=== PATIENT | female | born 2000 ===

== ENCOUNTER 2018-03-27 16:27 | Emergency (ER) | payer SELFPAY ==
[2018-03-27] MEDS ORDERED: Lidocaine 1% Inj (20ml) INFIL STA (17:02)
[2018-03-27] MEDS ORDERED: Lidocaine Hydrochloride 5 ML INJ ONE (17:30)
[2018-03-27 17:34] VITALS: BP 110/73; PULSE 68; RESP 18; TEMP 98.2; O2SAT 98
--- NOTE | 2018-03-27 17:38 | C.PDOC ---
History Of Present Illness 18 year old female presents to the ED for evaluation of a left thumb laceration which she sustained two days ago. Patient states the wound opened up and started bleeding today when she tried to lift a window. Patient denies any other injuries at this time. Time Seen by Provider: 03/27/18 16:44 Chief Complaint (Nursing): Abnormal Skin Integrity History Per: Patient History/Exam Limitations: no limitations Onset/Duration Of Symptoms: Hrs Current Symptoms Are (Timing): Still Present Location Of Injury: Left: Hand (thumb) Additional History Per: Patient Past Medical History Reviewed: Historical Data, Nursing Documentation, Vital Signs Vital Signs: Last Vital Signs Temp 98.2 F 03/27/18 17:33 Pulse 68 03/27/18 17:33 Resp 18 03/27/18 17:58 BP 110/73 03/27/18 17:33 Pulse Ox 98 03/27/18 17:33 - Medical History PMH: No Chronic Diseases Surgical History: No Surg Hx Family History: States: Unknown Family Hx - Social History Hx Alcohol Use: No Hx Substance Use: No - Immunization History Hx Tetanus Toxoid Vaccination: No Hx Influenza Vaccination: No Hx Pneumococcal Vaccination: No Review Of Systems Skin: Positive for: Other (laceration to left thumb ) Physical Exam - Physical Exam Appears: Non-toxic, No Acute Distress Skin: Warm, Dry, Other (1cm laceration to left thumb. no active bleeding) Head: Atraumatic, Normacephalic Eye(s): bilateral: Normal Inspection Oral Mucosa: Moist Neck: Supple Extremity: Normal ROM, Capillary Refill (less than 2 seconds ) Neurological/Psych: Oriented x3, Normal Speech, Normal Cognition, Normal Sensation Laceration - Laceration Repair left thumb Wound Length (In cm): 1 Description Of Wound: Linear Anesthesia: Lidocaine 1% Wound Examination: Irrigated With Saline, No FB With Wound Exploration, No Tendon Injury With Wound Exploration Wound Closure: Suture (two ) Wound Complexity: Simple Medical Decision Making Medical Decision Making: Impression: 18 year old female with left thumb laceration Progress: 1cm laceration to left thumb. Local anesthesia achieved with 1% lidocaine without epinephrine. Wound irrigated with normal saline and explored. No FB seen. No tendon injury. Two sutures placed. Hemostasis achieved, patient tolerated well. Patient is resting comfortably, showing no signs of distress and is stable for discharge. Will prescribe prophylactic antibiotic treatment since laceration was sustained two days ago. Advised to follow up with PMD within 1-2 days for further evaluation and/or return to the ED if symptoms persist or worsen. Disposition - Disposition Disposition: HOME/ ROUTINE Disposition Time: 05:00 Condition: STABLE Additional Instructions: follow up with your doctor/clinic. return to er with worsneing symptoms or concenrs. sutures need to be removed in 10 days. Prescriptions: Sulfamethoxazole/Trimethoprim [Bactrim DS 800 mg-160 mg] 1 tab PO BID #20 tab Instructions: Laceration Repair, Laceration Repair With Stitches (DC) Forms: [employer] (Amharic) Print Language: PANAMANIAN - Clinical Impression Clinical Impression: Thumb laceration - Scribe Statement The provider has reviewed the documentation as recorded by the Scribe (Manda Main) Provider Attestation: All medical record entries made by the Scribe were at my direction and personally dictated by me. I have reviewed the chart and agree that the record accurately reflects my personal performance of the history, physical exam, medical decision making, and the department course for this patient. I have also personally directed, reviewed, and agree with the discharge instructions and disposition.
== END 2018-03-27 17:59 | disposition home or self-care (01) ==
LOC: C.ER 16:27
DX: S61.012A Laceration without foreign body of left thumb without damage to nail, initial encounter (principal); X58.XXXA Exposure to other specified factors, initial encounter

== ENCOUNTER 2018-07-23 18:19 | Emergency (ER) | payer OTHER ==
[2018-07-23 18:58] VITALS: RESP 14
--- NOTE | 2018-07-23 20:11 | C.PDOC ---
History Of Present Illness 18 year old female presents to the ER stating that since 04/2018 she has felt a lump in her throat when she swallows. Patient states she does not feel any pain but does have some discomfort when eating. Denies fever or URI symptoms. She has not seen a doctor for the symptoms. Time Seen by Provider: 07/23/18 19:29 Chief Complaint (Nursing): ENT Problem History Per: Patient History/Exam Limitations: None Onset/Duration Of Symptoms: Days Current Symptoms Are (Timing): Still Present Quality (Mouth/Throat): Other (Feels lump when swallowing) Anticoagulant/Antiplatlet Use?: No Past Medical History Reviewed: Historical Data, Nursing Documentation, Vital Signs Vital Signs: Last Vital Signs Temp 98.9 F 07/23/18 18:55 Pulse 87 07/23/18 18:55 Resp 14 07/23/18 18:55 BP 130/90 07/23/18 18:55 Pulse Ox 100 07/23/18 18:55 Family History: States: Unknown Family Hx - Social History Hx Alcohol Use: No Hx Substance Use: No - Immunization History Hx Tetanus Toxoid Vaccination: No Hx Influenza Vaccination: No Hx Pneumococcal Vaccination: No Review Of Systems Constitutional: Negative for: Fever ENT: Positive for: Other (Lump in throat when swallowing). Negative for: Nose Discharge, Throat Pain Respiratory: Negative for: Cough Physical Exam - Physical Exam Appears: Non-toxic Skin: Normal Color, Warm, Dry Head: Atraumatic, Normacephalic Eye(s): bilateral: Normal Inspection Ear(s): Bilateral: Normal Nose: Normal Oral Mucosa: Moist Throat: Normal, No Erythema, No Mass, Other (Uvula midline) Neck: Normal, Supple, Other (Normal thyroid, no palpable mass) Neurological/Psych: Oriented x3, Normal Speech ED Course And Treatment O2 Sat by Pulse Oximetry: 100 (Room air) Pulse Ox Interpretation: Normal Progress Note: Patient is resting comfortably in the ER in no acute distress, vitals are stable, will discharge home with instructions to follow up at the clinic for further evaluation. Disposition Counseled Patient/Family Regarding: Diagnosis, Need For Followup - Disposition Referrals: [facility] [Outside] Disposition: HOME/ ROUTINE Disposition Time: 20:09 Condition: STABLE Additional Instructions: Sigue en la clinica Regresa si se empeora Instructions: Sore Throat, Adult (DC) Forms: [employer] (Chinese) Print Language: FIJIAN - Clinical Impression Clinical Impression: Throat discomfort - PA / [employer] / Resident Statement MD/DO has reviewed & agrees with the documentation as recorded. - Scribe Statement The provider has reviewed the documentation as recorded by the Scribwalter Yuan All medical record entries made by the Qianaibe were at my direction and personally dictated by me. I have reviewed the chart and agree that the record accurately reflects my personal performance of the history, physical exam, medical decision making, and the department course for this patient. I have also personally directed, reviewed, and agree with the discharge instructions and disposition.
[2018-07-23 20:27] VITALS: BP 120/70; PULSE 70; TEMP 98.5
[2018-07-23 21:51] VITALS: O2SAT 100
== END 2018-07-23 20:27 | disposition home or self-care (01) ==
LOC: C.ER 18:19
DX: J39.2 Other diseases of pharynx (principal)